=== PATIENT | female | born 1965 | race Hispanic/Latino ===

== ENCOUNTER → 2018-09-29 | Outpatient (CLI) | payer OTHER ==
[~2018-09-29] VITALS: Ht 154.9 cm; Wt 93.7 kg
[~2018-09-29] MED LIST: CEFAZOLIN SODIUM 1 GM VIAL IVP SCH; ESTRADIOL VAGINAL VG; GENTAMICIN 80 MG/NS 100 ML PB 100 ML IV SCH; GLIP10TA9 PO; LEVO125T11 PO; METF-444 PO; NITR100C PO; ROSU5TAB12 PO; SUCR1TAB2 PO
[2018-09-29 14:24] VITALS: BP 162/90
[2018-09-29 14:52] LABS: BASOPHILS % (AUTO) 0.6 % (0.0-5.0); EOSINOPHILS % (AUTO) 2.2 % (0.0-8.0); HEMATOCRIT 46.7 % (36-48); LYMPHOCYTES % (AUTO) 42.8 % (21.0-51.0); MEAN CORPUSCULAR HEMOGLOBIN 30.3 pg (27.0-33.0); MEAN CORPUSCULAR HGB CONC 33.5 g/dL (32.0-36.0); MEAN CORPUSCULAR VOLUME 90.3 fL (79-99); MONOCYTES % (AUTO) 3.9 % (3.0-13.0); NEUTROPHILS % (AUTO) 50.5 % (40.0-77.0); NUCLEATED RED BLOOD CELLS 0.1 % (0.0-0.19); PLATELET COUNT (AUTO) 155 K/uL (130-400); RED BLOOD CELL COUNT(AUTO) 5.17 MIL/uL (4.00-5.50); RED CELL DISTRIBUTION WIDTH 15.3 % (11.0-15.5); WHITE BLOOD COUNT (AUTO) 7.5 K/uL (4.8-10.8)
[2018-09-29 14:53] LABS: APPEARANCE,URINE Clear (CLEAR); BILIRUBIN,URINE Small (NEGATIVE); COLOR,URINE Dark Yellow (YELLOW); GLUCOSE, URINE (UA) >=1000 mg/dL (NEGATIVE); KETONES,URINE Trace mg/dL (NEGATIVE); LEUKOCYTE ESTERASE ,URINE Negative (NEGATIVE); NITRATE,URINE Negative (NEGATIVE); OCCULT BLOOD,URINE Negative (NEGATIVE); PROTEIN,URINE POS 2+ mg/dL (NEGATIVE)
[2018-09-29 15:03] LABS: BACTERIA,URINE Few /HPF (None Seen); INR 1.09 (0.85-1.15); MUCUS,URINE Few LPF (None Seen); PROTHROMBIN TIME 11.4 SEC (9.6-11.6); RBC,URINE 0-1 /HPF (0-1); SQUAMOUS EPITHELIAL CELL,UR Rare /HPF (0-2); WBC,URINE 0-1 /HPF (0-1)
[2018-09-29 15:27] LABS: CREATININE 1.2 mg/dL (0.5-1.5); POTASSIUM 4.7 mmol/L (3.5-5.1)
--- NOTE | 2018-09-29 15:30 | NUR ---
ABNORMAL EKG/ELEVATED BLOOD SUGARS ADVISED DR. RAMESH OF ABNORMAL EKG AND THAT PATIENT HAD BEEN SEEN BY DR. Panda KANG ON 05/2018 AND OF HAVING A HEARTCATH DUE TO CHEST PAINS. ADVISED DR. RAMESH PATIENT STATED SHE WAS TOLD EVERYTHING WAS OK AND HAD HAD THYROIDECTOMY AFTER CARDIAC CLEARANCE. ADVISED CATH REPORT WOULD BE SENT AND SAID HE WOULD REVIEW IT IN THE AM.
--- NOTE | 2018-09-29 16:53 | NUR ---
BLOOD GLUCOSE: CALLED DR CACERES'S OFFICE AND SPOKE WITH JANET. INFORMED HER OF PATIENT'S BLOOD SUGAR AND FAXED RESULTS TO DR ASTORGA OFFICE. WILL REPLY WITH ANY NEW ORDERS PER JANET.
[2018-09-30 12:05] LABS: HEMOGLOBIN A1C 10.4 % (4.0-6.0)
== END ==
LOC: DAH 10:00 → EDSTATUS 15:00
PROVIDERS: ATTEND Urology
DX: Z01.818 Encounter for other preprocedural examination (principal); N39.3 Stress incontinence (female) (male); R33.9 Retention of urine, unspecified; Z79.84 Long term (current) use of oral hypoglycemic drugs; Z79.899 Other long term (current) drug therapy; Z88.1 Allergy status to other antibiotic agents; Z88.8 Allergy status to other drugs, medicaments and biological substances; Z82.5 Family history of asthma and other chronic lower respiratory diseases; Z82.49 Family history of ischemic heart disease and other diseases of the circulatory system
CPT/HCPCS: 36415; 80048; 81001; 82947; 83036; 85025; 85610; 87088; 93005

== ENCOUNTER 2019-01-27 21:23 | Observation (INO) | payer OTHER ==
[~2019-01-27] VITALS: Ht 157.5 cm; Wt 95.2 kg
[~2019-01-27 21:23] MED LIST changes: -CEFAZOLIN SODIUM 1 GM VIAL IVP SCH; -GENTAMICIN 80 MG/NS 100 ML PB 100 ML IV SCH
[2019-01-27 22:00] LABS: BASOPHILS % (AUTO) 0.6 % (0.0-5.0); EOSINOPHILS % (AUTO) 1.8 % (0.0-8.0); HEMATOCRIT 44.4 % (36-48); LYMPHOCYTES % (AUTO) 41.6 % (21.0-51.0); MEAN CORPUSCULAR HEMOGLOBIN 31.2 pg (27.0-33.0); MEAN CORPUSCULAR HGB CONC 34.3 g/dL (32.0-36.0); MEAN CORPUSCULAR VOLUME 91.1 fL (79-99); MONOCYTES % (AUTO) 3.8 % (3.0-13.0); NEUTROPHILS % (AUTO) 52.2 % (40.0-77.0); NUCLEATED RED BLOOD CELLS 0.1 % (0.0-0.19); PLATELET COUNT (AUTO) 159 K/uL (130-400); RED BLOOD CELL COUNT(AUTO) 4.87 MIL/uL (4.00-5.50); RED CELL DISTRIBUTION WIDTH 14.4 % (11.0-15.5); WHITE BLOOD COUNT (AUTO) 8.1 K/uL (4.8-10.8)
[2019-01-27] MEDS ORDERED: ASPIRIN 325 MG TABLET ONE (22:06)
[2019-01-27] MEDS ORDERED: NITROGLYCERIN 0.4 MG SL TAB SL ONE (22:07)
[2019-01-27 22:14] LABS: POTASSIUM 4.3 mmol/L (3.5-5.1)
[2019-01-27 22:17] LABS: INR 1.06 (0.85-1.15); PARTIAL THROMBOPLASTIN TIME 26.6 SEC (26.3-35.5); PROTHROMBIN TIME 11.1 SEC (9.6-11.6)
[2019-01-27 22:29] LABS: ALBUMIN 3.9 g/dL (3.5-5.0); BILIRUBIN,TOTAL 1.3 mg/dL (0.2-1.0); TOTAL PROTEIN, SERUM 8.1 g/dL (6.0-8.3)
[2019-01-27] MEDS ORDERED: SODIUM CHLORIDE 0.9% 1000ML 1,000 ML IV ONE (22:54)
[2019-01-28] MEDS ORDERED: ACETAMINOPHEN 325 MG TAB PO PRN ×2 (02:00)
[2019-01-28] MEDS ORDERED: ONDANSETRON HCL 4 MG/2 ML VIAL IV PRN (02:00)
[2019-01-28] MEDS ORDERED: HYDRALAZINE HCL 20 MG/ML VIAL IV PRN (02:00)
[2019-01-28 02:33] LABS: BASOPHILS % (AUTO) 0.4 % (0.0-5.0); EOSINOPHILS % (AUTO) 1.4 % (0.0-8.0); HEMATOCRIT 41.6 % (36-48); LYMPHOCYTES % (AUTO) 40.9 % (21.0-51.0); MEAN CORPUSCULAR HEMOGLOBIN 31.8 pg (27.0-33.0); MEAN CORPUSCULAR HGB CONC 34.5 g/dL (32.0-36.0); MONOCYTES % (AUTO) 4.4 % (3.0-13.0); NEUTROPHILS % (AUTO) 52.9 % (40.0-77.0); NUCLEATED RED BLOOD CELLS 0.1 % (0.0-0.19); PLATELET COUNT (AUTO) 137 K/uL (130-400); RED BLOOD CELL COUNT(AUTO) 4.52 MIL/uL (4.00-5.50); RED CELL DISTRIBUTION WIDTH 14.1 % (11.0-15.5); WHITE BLOOD COUNT (AUTO) 8.6 K/uL (4.8-10.8)
[2019-01-28 02:54] LABS: CREATINE KINASE, TOTAL 396 U/L (21-232); MYOGLOBIN 38 ng/mL (10-92); THYROID STIMULATING HORMONE 60.28 uIU/mL (0.36-3.74); TROPONIN I < 0.04 ng/mL (0.00-0.06)
[2019-01-28] MEDS ORDERED: NITROGLYCERIN 0.4 MG SL TAB SL PRN (04:00)
[2019-01-28] MEDS: INSULIN HUMULIN R 100 UNIT/ML 3ML SQ SCH ×4 (07:30→20:59)
[2019-01-28] MEDS ORDERED: FAMOTIDINE/PF 20 MG/2 ML VIAL IV ONE (08:23)
[2019-01-28] MEDS ORDERED: ENOXAPARIN SODIUM 30 MG/0.3 ML SQ ONE (08:23)
[2019-01-28] MEDS ORDERED: INSULIN HUMULIN R 100 UNIT/ML 3ML ONE (08:24)
[2019-01-28] MEDS: ENOXAPARIN SODIUM 30 MG/0.3 ML SQ SCH (09:00)
[2019-01-28] MEDS: FAMOTIDINE/PF 20 MG/2 ML VIAL IV SCH ×2 (09:00→20:52)
[2019-01-28 10:05] LABS: MYOGLOBIN 41 ng/mL (10-92); TROPONIN I < 0.04 ng/mL (0.00-0.06)
[2019-01-28 10:10] LABS: CREATINE KINASE, TOTAL 408 U/L (21-232)
[2019-01-28] MEDS: LEVOTHYROXINE 100 MCG VIAL IV SCH (11:18)
[2019-01-28] MEDS ORDERED: INSU100V37 SQ (15:29)
[2019-01-28] MEDS ORDERED: LISI10TA7 PO (15:29)
[2019-01-28 15:30] VITALS: BP 131/70
[2019-01-28] MEDS ORDERED: LEVO125T11 PO (17:39)
[2019-01-28 18:32] LABS: CREATINE KINASE, TOTAL 396 U/L (21-232); MYOGLOBIN 32 ng/mL (10-92); TROPONIN I < 0.04 ng/mL (0.00-0.06)
[2019-01-28 19:34] VITALS: BP 151/67
[2019-01-28 23:36] VITALS: BP 102/76
[2019-01-29 04:00] VITALS: BP 125/76
[2019-01-29 05:08] LABS: HEMATOCRIT 42.4 % (36-48); MEAN CORPUSCULAR HEMOGLOBIN 31.9 pg (27.0-33.0); MEAN CORPUSCULAR HGB CONC 34.8 g/dL (32.0-36.0); MEAN CORPUSCULAR VOLUME 91.7 fL (79-99); NUCLEATED RED BLOOD CELLS 0.1 % (0.0-0.19); PLATELET COUNT (AUTO) 139 K/uL (130-400); RED BLOOD CELL COUNT(AUTO) 4.63 MIL/uL (4.00-5.50); RED CELL DISTRIBUTION WIDTH 14.2 % (11.0-15.5); WHITE BLOOD COUNT (AUTO) 7.1 K/uL (4.8-10.8)
[2019-01-29 05:11] LABS: HEMOGLOBIN A1C 8.6 % (4.0-6.0)
[2019-01-29 05:49] LABS: ALANINE AMINOTRANSFERASE 68 U/L (12-78); ALBUMIN 3.5 g/dL (3.5-5.0); BILIRUBIN,TOTAL 1.1 mg/dL (0.2-1.0); CARBON DIOXIDE 28 mmol/L (21-32); CHLORIDE 101 mmol/L (101-111); CHOLESTEROL 221 mg/dL (<200); CREATINE KINASE, TOTAL 376 U/L (21-232); CREATININE 0.9 mg/dL (0.5-1.5); GLOMERULAR FILTR. RATE CALC 69 mL/min (>60); GLUCOSE,RANDOM 208 mg/dL (70-105); HDL CHOLESTEROL 35 mg/dL (35-85); LDL DIRECT 147 mg/dL (0-99); POTASSIUM 3.6 mmol/L (3.5-5.1); SODIUM SERUM 139 mmol/L (136-145); TOTAL PROTEIN, SERUM 7.7 g/dL (6.0-8.3); TRIGLYCERIDES 208 mg/dL (30-200); TROPONIN I < 0.04 ng/mL (0.00-0.06); UREA NITROGEN, BLOOD 14 mg/dL (7-18)
[2019-01-29 06:13] LABS: ASPARTATE AMINOTRANSFERASE 73 U/L (10-37); MYOGLOBIN 24 ng/mL (10-92)
[2019-01-29] MEDS: LEVOTHYROXINE 100 MCG VIAL IV SCH (06:42)
[2019-01-29] MEDS: INSULIN HUMULIN R 100 UNIT/ML 3ML SQ SCH ×2 (06:49→11:30)
[2019-01-29 07:46] VITALS: BP 129/72
[2019-01-29] MEDS: FAMOTIDINE/PF 20 MG/2 ML VIAL IV SCH (09:06)
[2019-01-29] MEDS: ENOXAPARIN SODIUM 30 MG/0.3 ML SQ SCH (09:07)
[2019-01-29 11:29] VITALS: BP 140/73
== END 2019-01-29 12:39 | disposition home or self-care (01) ==
LOC: EDH 21:23 → EDHIP 01-28 01:52 → 4DH 01-28 14:45
PROVIDERS: ADMIT Internal Medicine; ATTEND Internal Medicine
DX: R07.89 Other chest pain (principal); F41.9 Anxiety disorder, unspecified; I10 Essential (primary) hypertension; E11.9 Type 2 diabetes mellitus without complications; E78.5 Hyperlipidemia, unspecified; E78.00 Pure hypercholesterolemia, unspecified; E89.0 Postprocedural hypothyroidism; Z90.710 Acquired absence of both cervix and uterus; Z98.61 Coronary angioplasty status; Z79.4 Long term (current) use of insulin; Z79.899 Other long term (current) drug therapy; Z88.1 Allergy status to other antibiotic agents; Z88.8 Allergy status to other drugs, medicaments and biological substances
CPT/HCPCS: 36415 ×3; 71045; 80053 ×2; 80061; 82550 ×5; 82948 ×6; 83036; 83874 ×4; 84443; 84484 ×5; 85025 ×2; 85027; 85610; 85730; 93005 ×5; 96372 ×2; 96374; 96375; 96376; 99284; G0378 ×35; J1650 ×2; J1815 ×2; J3490 ×5; J7030